=== PATIENT | male | born 1940 | race Caucasian/White ===

== ENCOUNTER 2024-02-21 22:55 | Emergency (ER) | payer MEDICARE, SELFPAY ==
[2024-02-21 23:01] VITALS: BP 149/86; PULSE 89; RESP 16; TEMP 36.4; O2SAT 93; BMI 23.0
[2024-02-21 23:03] VITALS: BP 132/73; BP 68/45; BP 97/56; PULSE 107; PULSE 91; PULSE 97
--- NOTE | 2024-02-21 23:03 | ED_ITS ---
HPI - General Adult General Chief complaint: Syncope/Fainted Stated complaint: Low BP Time Seen by Provider: 02/21/24 23:03 History of Present Illness HPI narrative: patient has been having some issues recently with what he thinks is orthostatic BP, stands up to fast and feels like he gets very lightheaded. family reports tonight he stood up from dinner and had to sit back down then again had to do this when they got home from dinner. did not fall or hit head. states he feels overall kind of weak and congested, tested for covid yesterday and it was negative. 66-year-old man presenting to the emergency department after a near fall. History of episodes of lightheadedness and near syncope, falls for the last 2 and half years perhaps. Six months ago started on midodrine. Did have an echocardiogram a year and half ago; uncertain findings at this point. I note a murmur when I am auscultating; this appears to be new information. History not available. Spouse notes how with these episodes goes a little stiff. These seem to have been triggered,or worsened in the past, possibly with alcohol intake and he has been off of alcohol and did have a glass of wine this evening. Trying to ambulate this evening and son-in-law had a steer him to avoid hitting the table as is face became increasingly blank. Been noted a little short of breath as well with URI symptoms over the last 24 - 36 hours. It sounds as though metoprolol was started as medication sometime back for blood pressure though there may be a diagnosis of heart failure as well. Has never had a heart attack apparently. Reports rhythm monitoring in the past without significant findings. Apparently was in atrial fibrillation around time of a hospitalization. But otherwise has not been a recurrent problem and is not on anticoagulation be on low-dose aspirin. Home COVID test was negative yesterday. Up from [place] to visit Related Data Home Medications ?Medication ?Instructions ?Recorded ?Confirmed aspirin 81 mg tablet,delayed 81 mg PO DAILY 02/21/24 02/21/24 release (Adult Low Dose Aspirin) duloxetine 60 mg capsule,delayed 60 mg PO DAILY 02/21/24 02/21/24 release metoprolol succinate 25 mg 25 mg PO DAILY 02/21/24 02/21/24 tablet,extended release 24 hr (Toprol XL) midodrine 10 mg tablet 10 mg PO TID 02/21/24 02/21/24 omeprazole 40 mg capsule,delayed 40 mg PO DAILY 02/21/24 02/21/24 release simvastatin 40 mg tablet 40 mg PO DAILY 02/21/24 02/21/24 Allergies Allergy/AdvReac Type Severity Reaction Status Date / Time No Known Drug Allergies Allergy Verified 02/21/24 23:06 Review of Systems Status of ROS: Reports: 6 or more systems reviewed and unremarkable except as noted in History and below PFSH PFS Social History Do you use any of these nicotine containing products: None How often do you have a drink containing alcohol: never AUDIT-C Alcohol total score: 0 Non-prescribed substance use: denies use Exam Narrative: Exam Narrative: Very pleasant. Good energy. Skin is warm dry. Lungs are clear. Does sound a little congested in the nasopharynx. Heart in regular rate and rhythm with a 2/6 systolic murmur. Extremities are well perfused. Without edema. Abdomen is soft nontender. Oropharynx unremarkable. Head is atraumatic. Moving all extremities without difficulty. Cranial nerves 2-12 intact. Const: Vital Signs, click to edit/add: Vital Signs - 24 hr 02/21/24 23:01 02/21/24 23:03 02/21/24 23:54 Temperature 97.6 F Pulse Rate [Pulse Oximeter] 89 80 Pulse Rate [orthos tatic lying Pulse Oximeter] 91 Pulse Rate [orthos tatic sitting Puls e Oximeter] 97 Pulse Rate [orthos tatic standing Pul se Oximeter] 107 H Respiratory Rate 16 16 Blood Pressure [Ri ght Upper Arm] 149/86 H 145/90 H Blood Pressure [or thostatic lying Ri ght Arm] 132/73 Blood Pressure [or thostatic sitting Right Arm] 97/56 L Blood Pressure [or thostatic standing Right Arm] 68/45 L Pulse Oximetry 93 98 Oxygen Delivery Me thod Room Air Room Air 02/22/24 00:43 Temperature Pulse Rate [Pulse Oximeter] 88 Pulse Rate [orthos tatic lying Pulse Oximeter] Pulse Rate [orthos tatic sitting Puls e Oximeter] Pulse Rate [orthos tatic standing Pul se Oximeter] Respiratory Rate 16 Blood Pressure [Ri ght Upper Arm] 130/91 H Blood Pressure [or thostatic lying Ri ght Arm] Blood Pressure [or thostatic sitting Right Arm] Blood Pressure [or thostatic standing Right Arm] Pulse Oximetry 98 Oxygen Delivery Me thod Room Air Documenting provider has reviewed patient's vital signs: yes Course Vital Signs Vital signs: Initial Vital Signs Temperature 97.6 F 02/21/24 23:01 Temperature Source Temporal Artery Scan 02/21/24 23:01 Pulse Rate 89 02/21/24 23:01 Pulse Rhythm Regular 02/21/24 23:01 Respiratory Rate 16 02/21/24 23:01 Blood Pressure 149/86 H 02/21/24 23:01 Blood Pressure Mean 107 H 02/21/24 23:01 Blood Pressure Position Supine 02/21/24 23:01 Pulse Oximetry 93 02/21/24 23:01 Oxygen Delivery Method Room Air 02/21/24 23:01 Vital Signs Temperature 97.6 F 02/21/24 23:01 Pulse Rate 89 02/21/24 23:01 Respiratory Rate 16 02/21/24 23:01 Blood Pressure 149/86 H 02/21/24 23:01 Pulse Oximetry 93 02/21/24 23:01 Oxygen Delivery Method Room Air 02/21/24 23:01 Temperature 97.6 F 02/21/24 23:01 Pulse Rate 88 02/22/24 00:43 Respiratory Rate 16 02/22/24 00:43 Blood Pressure 130/91 H 02/22/24 00:43 Pulse Oximetry 98 02/22/24 00:43 Oxygen Delivery Method Room Air 02/22/24 00:43 Medications Administered Medications: Discontinued Medications Generic Name Dose Route Start Last Admin Trade Name Freq PRN Reason Stop Dose Admin Sodium Chloride 500 mls @ 1,000 mls/hr 02/21/24 23:03 02/21/24 23:47 0.9 % Sodium Chloride 500 Ml IV 02/21/24 23:32 Infused .Q30M ONE Infusion Sodium Chloride 500 mls @ 1,200 mls/hr 02/22/24 00:27 02/22/24 01:40 0.9 % Sodium Chloride 500 Ml IV 02/22/24 00:51 Infused .Q25M ONE Infusion Medical Decision Making MDM Narrative Medical decision making narrative: Generally well-appearing man however with alarming symptoms of syncope. This appears to have been worked up extensively with conclusion of orthostatic hypotension and being treated for this. Has otherwise been unwell lately with cold symptoms that might make more susceptible. Would check basic labs for anemia or other electrolyte abnormalities and monitor on monitoring specialist for arrhythmia and further events. Hemoglobin of 9.7 not too far off baseline? Will be receiving another 500 mL bolus. Is feeling better would as soon leave the emergency department. Up to urinate and was not feeling the lightheadedness. color television console monitor appear to be showing atrial fibrillation at one point. Repeat EKG at that time independently reviewed by me did not. Looked to be in normal sinus rhythm had a rate of 90. Can metoprolol dosing be lowered? ProBNP of 1180 EMR down time tonight affecting lab reporting. CRP noted to be quite elevated on later review. Unclear significance. See patient discharge plan for further discussion Lab Data Lab results reviewed: Yes I reviewed the patient's lab results Labs: Lab Results 02/21/24 02/21/24 Range/Units 23:12 23:46 WBC 8.08 (4.50-11.00) K/uL RBC 3.02 L (4.30-5.90) m/uL Hgb 9.7 L (13.5-17.5) gm/dL Hct 29.6 L (37.0-53.0) % MCV 98 (80-100) fL MCH 32 (26-34) pg MCHC 33 (32-36) gm/dL RDW Coeff of Sunny 13.6 (11.5-15.5) % Plt Count 179 (140-440) K/uL Neut % (Auto) 74.5 H (42.0-72.0) % Lymph % (Auto) 10.0 L (20-44) % [place] % (Auto) 11.6 H (0.0-11.0) % Eos % (Auto) 2.8 (0.0-7.0) % Baso % (Auto) 0.1 (0.0-3.0) % Neut # (Auto) 6.00 (1.7-7.0) K/uL Lymph # (Auto) 0.80 L (0.90-2.90) K/uL [place] # (Auto) 0.90 (0.00-0.90) K/UL Eos # (Auto) 0.20 (0.00-0.50) K/uL Baso # (Auto) 0.00 (0.00-0.30) K/uL Sodium 134 L (135-149) mmol/L Potassium 4.3 (3.6-5.1) mmol/L Chloride 106 (96-114) mmol/L Carbon Dioxide 20 (20-32) mmol/L Anion Gap 8 (7-15) mEq/L BUN 37 H (7-30) mg/dL Creatinine 1.4 (0.5-1.5) mg/dL Estimated Creat Clear 40.68 Estimated GFR 50 ml/min Glucose 150 H (60-115) mg/dL Calcium 8.7 (8.4-10.6) mg/dL NT-Pro-B Natriuret Pep 1180 pg/mL Urine Color Yellow (Yellow) Urine Appearance Clear (Clear) Urine pH 5.5 (5.0-8.5) Ur Specific [place] 1.020 (1.000-1.030) Urine Protein Trace A (Negative) Urine Glucose (UA) Negative (Negative) Urine Ketones Negative (Negative) Urine Blood Negative (Negative) Urine Nitrite Negative (Negative) Urine Bilirubin Negative (Negative) Urine Urobilinogen 0.2 (0.2-1.0) Ur Leukocyte Esterase Negative (Negative) Urine RBC 0-2 (0-2) Urine WBC 0-2 (0-5) Ur Squamous Epith Cells None (None-Few) Urine Bacteria None (None) SARS-CoV-2 (PCR) Negative SARS-CoV-2 (Negative) Influenza Type A (PCR) Negative PCR FLU A (Negative) Influenza Type B (PCR) Negative PCR FLU B (Negative) RSV (PCR) Negative PCR RSV (Negative) ECG Data Attestation: I personally reviewed and interpreted this ECG as follows: (Sinus rhythm with PACs at a rate of 90) Discharge Plan Discharge Clinical Impression: Chronic orthostatic hypotension, Cardiac murmur Patient Disposition: Home w/ Parent or Adult Condition: Improved Additional Instructions: Focus on hydration. Take care in transitions. Return for prolonged episode or for increasing shortness of breath, chest pain, worsening weakness otherwise. I think it would be good to go back through your medical records with your family and medical providers and review again your diagnoses, expectations, medications. Prescriptions: No Action metoprolol succinate [Toprol XL] 25 mg tablet extended release 24 hr 25 mg PO DAILY duloxetine 60 mg capsule,delayed release(DR/EC) 60 mg PO DAILY omeprazole 40 mg capsule,delayed release(DR/EC) 40 mg PO DAILY midodrine 10 mg tablet 10 mg PO TID Rx Instructions: do not give last dose of day after 6PM or within 4 hrs of bedtime aspirin [Adult Low Dose Aspirin] 81 mg tablet,delayed release (DR/EC) 81 mg PO DAILY simvastatin 40 mg tablet 40 mg PO DAILY Follow Up/Referrals: Provider,Not a Local [Primary Care Provider] - Stand Alone Forms: [employer] Info Instructions
[2024-02-21] MEDS: 0.9 % SODIUM CHLORIDE 500 ML 500 ML 1000 ML IV (23:11)
[2024-02-21 23:54] VITALS: BP 145/90; PULSE 80; RESP 16; O2SAT 98
[2024-02-21 23:57] LABS: Eosinophils Percent Auto 2.8 % (0.0-7.0); Hematocrit 29.6 % (37.0-53.0); Hemoglobin* 9.7 gm/dL (13.5-17.5); Mean Corpuscular HGB Conc 33 gm/dL (32-36); Mean Corpuscular Hemoglobin 32 pg (26-34); Mean Corpuscular Volume 98 fL (80-100); Monocytes Percent Auto 11.6 % (0.0-11.0); Neutrophils Percent Auto 74.5 % (42.0-72.0); Platelet Count* 179 K/uL (140-440); RDW Coefficient of Variation % 13.6 % (11.5-15.5); Red Blood Count 3.02 m/uL (4.30-5.90); White Blood Count* 8.08 K/uL (4.50-11.00)
[2024-02-21 23:58] LABS: Basophils Percent Auto 0.1 % (0.0-3.0); Slide Review Reflex No
[2024-02-21 23:59] LABS: Anion Gap 8 mEq/L (7-15); Blood Urea Nitrogen* 37 mg/dL (7-30); Carbon Dioxide* 20 mmol/L (20-32); Chloride* 106 mmol/L (96-114); Potassium* 4.3 mmol/L (3.6-5.1); Sodium* 134 mmol/L (135-149)
[2024-02-22] LABS: Calcium* 8.7 mg/dL (8.4-10.6); Creatinine* 1.4 mg/dL (0.5-1.5); Est. Creatinine Clearance* 40.68; Estimated Glomerular Filt Rate 50 ml/min; Glucose* 150 mg/dL (60-115); NT Pro B Type NatriureticPept* 1180 pg/mL
--- NOTE | 2024-02-22 00:03 | CRLHL7_ITS ---
For Patients: As a result of the Century Cures Act, medical imaging exams and procedure reports are released immediately into your electronic medical record. You may view this report before your referring provider. If you have questions, please contact your health care provider. INDICATION: Syncope and cough. TECHNIQUE: Chest 1 views. COMPARISON: None. FINDINGS: Cardiac silhouette is magnified. There is mild pulmonary vascular congestion. No confluent airspace opacity. No pleural effusion or pneumothorax. Gaseous distention of visualized bowel loops. No acute osseous abnormality. Chronic appearing left-sided rib fracture deformities. IMPRESSION: Mild pulmonary vascular congestion. Gaseous distention of visualized bowel loops, nonspecific. If there is any clinical suspicion for intra-abdominal pathology, recommend further evaluation with CT abdomen/pelvis. Dictated by Tony William MD @ 02/22/2024 1:10:05 AM (Electronically Signed)
[2024-02-22 00:08] LABS: PCR FLU A Negative PCR FLU A (Negative); PCR FLU B Negative PCR FLU B (Negative); PCR RSV Negative PCR RSV (Negative); SARS PCR* Negative SARS-CoV-2 (Negative)
[2024-02-22 00:20] LABS: Appearance Urine Clear (Clear); Bilirubin Urine Negative (Negative); Blood Urine Negative (Negative); Color Urine Yellow (Yellow); Glucose Urine Negative (Negative); Ketones Urine Negative (Negative); Leukocyte Esterase Urine Negative (Negative); Nitrite Urine Negative (Negative); Protein Urine Trace (Negative); Urobilinogen Urine 0.2 (0.2-1.0); pH Urine 5.5 (5.0-8.5)
[2024-02-22 00:36] LABS: RBC Urine 0-2 (0-2); WBC Urine 0-2 (0-5)
[2024-02-22] MEDS: 0.9 % SODIUM CHLORIDE 500 ML 500 ML 1200 ML IV (00:40)
[2024-02-22 00:43] VITALS: BP 130/91; PULSE 88; RESP 16; O2SAT 98
== END 2024-02-22 01:45 | disposition home or self-care (01) ==
PROVIDERS: Emergency Provider Family Medicine
DX: I95.1 Orthostatic hypotension (principal); R01.1 Cardiac murmur, unspecified
CPT/HCPCS: 36415; 71045; 80048; 81001; 83880; 85025; 86140; 87631; 96360; 99284; J7030